=== PATIENT | male | born 1945 | race Caucasian/White ===

== ENCOUNTER 2018-04-26 06:50 | Inpatient (IN) ==
--- NOTE | 2018-04-05 12:16 | Anesthesiology Consultation ---
Date of Service April 05, 2018 Assessment & Plan (1) Encounter for pre-operative examination: Chart Review Chart Review: Acceptable Risk for Surgery and Patient seen in Pre Admission Testing Consults Requested medical (Dr. Merchant (04/07)) Saw PCP who stated that patient is "clear medically for low back surgery thursday04/26/18". Teaching & Discussion Pre-Anesthesia Teaching/Discussion Notes: Instructed NPO after midnight before surgery, except medications with 15 cc of water. Medication instructions provided according to the PAT guidelines. History Surgery Operation Date: 04/26/18 09:05 Proposed Procedures p L4-L5 Decompression and Fusion - Rehan Mccray DO Height/Weight Height: 5 ft 10 in Weight: 82.2 kg Allergies Allergy/AdvReac Type Severity Reaction Status Date / Time No Known Allergies Allergy Verified 03/30/18 09:50 Medications Home Medications Medication Instructions Recorded Confirmed Last Taken acetaminophen [Tylenol] 325 mg PO Q6H PRN 03/30/18 03/30/18 Unknown atorvastatin [Lipitor] 10 mg PO PM 03/30/18 03/30/18 Unknown empagliflozin-linagliptin 1 tab PO QAM 03/30/18 03/30/18 Unknown [Glyxambi] glipizide 5 mg PO QAM 03/30/18 03/30/18 Unknown losartan-hydrochlorothiazide 1 tab PO Q OTHER DAY 03/30/18 03/30/18 Unknown [Hyzaar] metformin 1,000 mg PO BID 03/30/18 03/30/18 Unknown Past Medical History Medical History BPH (benign prostatic hyperplasia) Diabetes mellitus, type 2 NIDDM Diverticular disease Hearing deficit BL GOMEZ Hyperlipidemia Hypertension Lyme disease TREATED Osteoarthritis Spinal stenosis Past Surgical History Surgical History History of bowel resection July 2017 History of cataract surgery History of colonoscopy History of esophagogastroduodenoscopy (EGD) Past Anesthesia History No Hx of Anesthesia Complications and No Family Hx of Anesthesia Complications History of PONV No Motion Sickness Screening History of Motion Sickness: No Social History Smoking Status: Never smoker Do You Dip or Chew Tobacco: No (Quit in 1983) Hx Alcohol Use: Yes Alcohol type: beer alcohol intake frequency: a few times a week Hx Substance Use: No substance use type: does not use Exercise / Class Metabolic Activity II 4-5 Yardwork/Stairs/Walk up hill (Able to climb FOS. Chops wood. Hunts. Denies CP or SOB. ) Review of Systems Patient denies chest pain, shortness of breath, dyspnea on exertion, reflux, cough, wheezing, palpitations. +joint pain (back, hands) Physical Exam Vital Signs BP: 150/80 P: 64 R: 16 T: 97.9 SPO2: 96 % on RA ENMT Mouth: + dentures (uppers) Thyromental Distance: > or= 3.5 Finger Breadths (4) Mallampati Class: III Neck normal visual inspection and trachea midline; neck extension not limited Respiratory normal respiratory effort Auscultation: lungs clear to auscultation bilaterally Cardiovascular Rate/Rhythm: regular rate and regular rhythm Heart Sounds: no murmur Vessels: no carotid bruit Psychiatric Orientation: alert and oriented x 3 Testing Electrocardiogram Date: 04/05/18 Findings: + SB @ (59) 1st degree A-V block. Chest X-Ray Date: 04/05/18 Findings: + NAD FINDINGS: Lung volumes are normal. There is no pneumothorax or pleural effusion. There are multiple calcified pleural plaques. Cardiac size is normal. Mediastinal contours are normal. No evidence for pulmonary edema. IMPRESSION: 1. No acute cardiopulmonary findings. 2. Multiple calcified pleural plaques. Laboratory Results 04/05/18 13:16 04/05/18 13:16 Blood Type A Positive 04/05/18 13:16 Antibody Screen NEGATIVE 04/05/18 13:16 PT 10.7 Seconds (9.0-12.0) 04/05/18 13:16 INR 1.0 (0.9-1.1) 04/05/18 13:16 APTT 26.1 Seconds (21.0-31.0) 04/05/18 13:16 Urine Color Yellow 04/05/18 Unknown Urine Appearance Clear (Clear) 04/05/18 Unknown Urine pH 5.0 (4.5-7.5) 04/05/18 Unknown Ur Specific [place] 1.019 (1.000-1.030) 04/05/18 Unknown Urine Protein Negative (Negative) 04/05/18 Unknown Urine Glucose (UA) 3+ (Negative) H 04/05/18 Unknown Urine Ketones Negative (Negative) 04/05/18 Unknown Urine Nitrite Negative (Negative) 04/05/18 Unknown Ur Leukocyte Esterase Negative (Negative) 04/05/18 Unknown Urine WBC (Auto) 0 /hpf (0-5) 04/05/18 Unknown Urine RBC (Auto) 0-4 /hpf (0-4) 04/05/18 Unknown U Hyaline Cast (Auto) 0 /lpf (0-5) 04/05/18 Unknown U Epithel Cells (Auto) 0-5 /lpf (0-5) 04/05/18 Unknown Urine Bacteria (Auto) Negative (Negative) 04/05/18 Unknown
--- NOTE | 2018-04-05 12:18 | PAT Medication Instructions ---
Medication Instructions Date of Service April 05, 2018 Home Medications acetaminophen [Tylenol] 325 mg PO Q6H NEEDED atorvastatin [Lipitor] 10 mg PO PM empagliflozin-linagliptin [Glyxambi] 1 tab PO QAM glipizide 5 mg PO QAM losartan-hydrochlorothiazide [Hyzaar] 1 tab PO Q OTHER DAY metformin 1,000 mg PO BID DO NOT take the morning of surgery empagliflozin-linagliptin [Glyxambi] 1 tab PO QAM glipizide 5 mg PO QAM losartan-hydrochlorothiazide [Hyzaar] 1 tab PO Q OTHER DAY metformin 1,000 mg PO BID Take morning of surgery With a small sip of water, OTHERWISE NOTHING TO EAT OR DRINK AFTER MIDNIGHT: acetaminophen [Tylenol] 325 mg PO Q6H NEEDED Take evening before surgery metformin 1,000 mg PO BID acetaminophen [Tylenol] 325 mg PO Q6H NEEDED atorvastatin [Lipitor] 10 mg PO PM Other Notes If you have any questions please call us at [phone] or [phone] or [phone] or [phone]
--- NOTE | 2018-04-05 13:51 | XRay Report ---
XR chest Pre-admission PA/Lat CLINICAL HISTORY: Preoperative evaluation. COMPARISON STUDY: No previous studies for comparison. FINDINGS: Lung volumes are normal. There is no pneumothorax or pleural effusion. There are multiple c alcified pleural plaques. Cardiac size is normal. Mediastinal contours are normal. No evidence for pu lmonary edema. IMPRESSION: 1. No acute cardiopulmonary findings. 2. Multiple calcified pleural plaques. Electronically signed by: Joseph Maharaj M.D. 04/05/2018 1:50 PM
[2018-04-05 15:47] LABS: Basophils # (auto) 0.03 K/uL (0-0.2); Basophils % (auto) 0.5 %; Eosinophils # (auto) 0.05 K/uL (0-0.5); Eosinophils % (auto) 0.8 %; Hematocrit (blood only) 46.4 % (42-52); Hemoglobin 15.9 g/dL (14.0-18.0); Immature Granulocytes # (auto) 0.02 K/uL (0.00-0.02); Immature Granulocytes % (auto) 0.3 %; Lymphocytes # (auto) 1.51 K/uL (1.2-3.4); Lymphocytes % (auto) 23.3 %; Mean Corpuscular Hgb Conc 34.3 g/dL (32-36); Mean Corpuscular Volume 94.3 fL (80-100); Mean Platelet Volume 9.4 fL (7.4-10.4); Monocytes # (auto) 0.71 K/uL (0.11-0.59); Neutrophils # (auto) 4.15 K/uL (1.4-6.5); Neutrophils % (auto) 64.1 %; Platelet Count 216 K/uL (130-400); RDW Coefficient of Variation 12.8 % (11.5-14.5); RDW Standard Deviation 44.1 fL (36.4-46.3); Red Blood Count 4.92 M/uL (4.7-6.1); White Blood Count 6.47 K/uL (4.8-10.8)
[2018-04-05 15:51] LABS: Appearance Urine Clear (Clear); Bacteria Urine Automated Negative (Negative); Bilirubin Urine Negative (Negative); Blood Urine Trace (Negative); Cast Urine Automated 0 /lpf (0-5); Color Urine Yellow; Epithelial Cell Urine Auto 0-5 /lpf (0-5); Glucose Urine UA 3+ (Negative); Ketones Urine Negative (Negative); Leukocyte Esterase Urine Negative (Negative); Nitrite Urine Negative (Negative); Protein Urine Negative (Negative); RBC Urine Automated 0-4 /hpf (0-4); Specific Gravity Urine 1.019 (1.000-1.030); Urobilinogen Urine Negative (Negative); WBC Urine Automated 0 /hpf (0-5)
[2018-04-05 15:53] LABS: BUN Creatinine Ratio 22.1 (10-20); Calcium 9.4 mg/dl (8.5-10.1); Creatinine Clr Calc Pharmacy 74.7 ml/min; Est GFR (African American) 93.6; Est GFR (Non-African American) 80.8; Potassium 4.5 mmol/L (3.5-5.1)
[2018-04-05 15:54] LABS: Partial Thromboplastin Time 26.1 Seconds (21.0-31.0); Prothrombin Time 10.7 Seconds (9.0-12.0)
[~2018-04-26 06:50] MED LIST: ACETAMINOPHEN 500 MG TAB PO SCH; CEFAZOLIN 2000MG 2,000 MG/15 ML SYR IV SCH; CeleBREX 200 MG CAP PO SCH; GABAPENTIN 300 MG PO SCH; HYDROmorphone INJ 2 MG/ML SYR/VIAL ONE; LR 15ML/HR IV SCH; MIDAZOLAM HCL 1 MG/ML 2ML VIAL ONE; fentaNYL citrate 100 MCG/2 ML VIAL ONE
[2018-04-26] MEDS ORDERED: fentaNYL citrate 100 MCG/2 ML VIAL ONE ×4 (08:15→11:29)
[2018-04-26] MEDS ORDERED: HYDROmorphone INJ 2 MG/ML SYR/VIAL ONE ×2 (08:16→11:02)
[2018-04-26] MEDS ORDERED: GLYCOPYRROLATE 0.2 MG/ML VIAL ONE (08:18)
[2018-04-26] MEDS ORDERED: DEXAMETHASONE SOD INJ 4 MG/ML VIAL ONE (08:18)
[2018-04-26] MEDS ORDERED: PROPOFOL IV EMULSION 10 MG/ML 20 ML VIAL IV ONE (08:18)
[2018-04-26] MEDS ORDERED: LIDOCAINE HCL 2% 2 ML VIAL/AMP(20MG/ML) INFIL ONE (08:18)
[2018-04-26] MEDS ORDERED: ONDANSETRON INJ 2 MG/ML 2 ML VIAL ONE (08:18)
[2018-04-26] MEDS ORDERED: ROCURONIUM BROMIDE 10 MG/ML 5 ML VIAL ONE (08:18)
[2018-04-26] MEDS ORDERED: NEOSTIGMINE METHYLSULFATE 1 MG/ML 10ML VIAL ONE (08:18)
[2018-04-26] MEDS ORDERED: fentaNYL citrate 100 MCG/2 ML VIAL IV PRN (09:06)
[2018-04-26] MEDS ORDERED: HYDROmorphone INJ 2 MG/ML SYR/VIAL IV PRN (09:06)
[2018-04-26] MEDS ORDERED: ONDANSETRON INJ 2 MG/ML 2 ML VIAL IV PRN ×2 (09:06→13:08)
[2018-04-26] MEDS ORDERED: ePHEDrine sulfate 50 MG/ML AMP IV PRN (09:06)
[2018-04-26] MEDS ORDERED: ATROPINE SULFATE 0.1 MG/ML 5ML SYR IV PRN (09:06)
--- NOTE | 2018-04-26 09:19 | History & Physical Bridge Note ---
Date of Service April 26, 2018 History & Physical Bridge Note I have examined the patient, reviewed the History & Physical and in the interval since the performance of the History & Physical I have noted the following changes of clinical significance: no changes noted
--- NOTE | 2018-04-26 09:21 | History & Physical Report ---
Date of Service April 26, 2018 Assessment & Plan (1) Neurogenic claudication due to lumbar spinal stenosis: Decompression fusion L4-5 Present on Admission?: Yes History of Present Illness Chief Complaint: Back and leg pain Primary Care Provider: Gato Navas This is a 73-year-old male who presents with chronic persistent back and leg pain is failed extensive course of nonoperative care and is here for surgical intervention. Allergies Allergy/AdvReac Type Severity Reaction Status Date / Time No Known Allergies Allergy Verified 03/30/18 09:50 Home Medications Home Medications Medication Instructions Recorded Confirmed Type acetaminophen [Tylenol] 325 mg PO Q6H PRN 03/30/18 04/26/18 History atorvastatin [Lipitor] 10 mg PO PM 03/30/18 04/26/18 History empagliflozin-linagliptin 1 tab PO QAM 03/30/18 04/26/18 History [Glyxambi] glipizide 5 mg PO QAM 03/30/18 04/26/18 History losartan-hydrochlorothiazide 1 tab PO Q OTHER DAY 03/30/18 04/26/18 History [Hyzaar] metformin 1,000 mg PO BID 03/30/18 04/26/18 History Past Med/Surg History Social History Current Living Situation: Spouse Other Information That Helps Us Care for You: No Feels Safe at Home: Yes Safety Concerns: Feels Safe At This Time Smoking Status: Never smoker Do You Dip or Chew Tobacco: No (Quit in 1983) Hx Alcohol Use: Yes Alcohol type: beer Alcohol Intake Frequency: a few times a week Hx Substance Use: No Beliefs That Will Affect Care: None Preferred Language: Welsh Communication Ability: Effective Pediatric Anesthesiologist Required: No Physical Exam 2 Vital Signs (Past 24 Hours): Last Vital Signs Temp 37.1 C 04/26/18 07:47 Pulse 70 04/26/18 07:47 Resp 18 04/26/18 07:47 BP 167/83 H 04/26/18 07:47 Pulse Ox 95 04/26/18 07:47 Results & Data Medications Administered Acetaminophen (Tylenol) 1,000 mg PO PREOP DIEUDONNE Stop: 04/26/18 18:00 Last Admin: 04/26/18 08:14 Dose: 1,000 mg Celecoxib (Celebrex) 200 mg PO PREOP DIEUDONNE Stop: 04/26/18 18:00 Last Admin: 04/26/18 08:15 Dose: 200 mg Gabapentin (Neurontin) 300 mg PO PREOP DIEUDONNE Stop: 04/26/18 18:00 Last Admin: 04/26/18 08:15 Dose: 300 mg Lactated Ringer's (Lr) 1,000 mls @ 15 mls/hr IV .Q24H DIEUDONNE Stop: 04/27/18 05:59 Last Admin: 04/26/18 08:03 Dose: 15 mls/hr
[2018-04-26] MEDS ORDERED: BACITRACIN INJ 50,000 UNIT VIAL ONE (09:46)
[2018-04-26] MEDS ORDERED: BUPIVACAINE/EPINEPHRINE 0.5% MPF 1:200,000 30 ML VIAL ONE (09:46)
[2018-04-26] MEDS ORDERED: LARYING-O-JET KIT (LTA) ONE (10:35)
[2018-04-26] MEDS ORDERED: ePHEDrine sulfate 50 MG/ML SYR ONE (11:23)
[2018-04-26] MEDS ORDERED: PHENYLEPHRINE 100MCG/ML 5ML SYR ONE (11:23)
[2018-04-26] MEDS ORDERED: KETOROLAC 30 MG/ML VIAL ONE (11:32)
--- NOTE | 2018-04-26 11:48 | Operative Report ---
Post Operative Report Date of Surgery April 26, 2018 Pre & Post Diagnosis Operation Date: 04/26/18 09:05 Pre-Op Diagnosis: Lumbar spinal stenosis with spondylolisthesis and neurogenic claudication Post-Op Diagnosis: Same Procedure Operation Date: 04/26/18 09:05 Actual Procedures #1 lumbar decompression medial vasectomy foraminotomy L3-4 L4-5. #2 posterior spinal fusion L4-5. #3 placement posterior interpretation L4-5. #4 interbody fusion L4-5 per #5 placement of titanium 11 x 26 mm cage at L5 4 5. #5 placement of local autograft and posterior gutters. #6 placement Feese: Sponge , master of the posterior gutters and ostial amp and interbody space. Surgeon Rehan Mccray, Senior Principal Architect None Estimated Blood Loss 225 Findings Consistent with Post-Op Diagnosis Specimens None Description of Procedure Patient was met with preoperatively case discussed all questions addressed with him and patient was taken to the operative suite underwent intubation and placed in a prone position on the Frantz table on top of the Carlyle frame. All bony prominences well-padded eyes inspected to ensure no external pressure placed upon the peer at this point lumbar spine was prepped and draped in normal sterile fashion. Sharp dissection with the assistance of Bovie cautery was performed down to and exposing the lamina and transverse process of L4 and 5 bilaterally. From a caudal cephalad fashion complete laminectomy of L4 partial laminectomy of L3 was performed including medial facetectomies and foraminotomies addressing severe stenosis. Pedicle screws were then placed in L4 and L5 bilaterally with assistance of fluoroscopy process gloria placement through a transforaminal approach and left the discectomy was performed in plate coated to subcortical bleeding bone and an 11 x 26 mm titanium cage filled with ostium bone graft tapped into position. Rods were then compressed locked in final position bilaterally. The transverse processes of L4 and fiber to subcortical bleeding bone. Infuse collagen sponge mass graft local autograft placed in the posterior gutters. 15 round SABINE drain inserted. Incision was then closed with 1 Vicryl fascia 2-0 Vicryl subcutaneous and 4 Monocryl for final skin closure Steri-Strip sterile dressings placed. Patient will continue to PACU stable condition. I attest to the content of the Intraoperative Record and any orders documented therein. Any exceptions are noted below.
--- NOTE | 2018-04-26 12:13 | Fluoroscopy Report ---
FL lumbar spine 2-3V CLINICAL HISTORY: L4-5 DECOMPRESSION/FUSION COMPARISON STUDY: None. FLUOROSCOPY TIME: 15.7 seconds. FLUOROSCOPIC IMAGES: 2 FINDINGS: These images demonstrate an L4-L5 discectomy with interbody spacer placement. There is a po sterior decompression with bilateral pedicle screws at the L4 and L5 levels. Hardware is intact. IMPRESSION: Fluoroscopic images demonstrating an L4-L5 discectomy and bilateral pedicle fusion. Electronically signed by: Joseph Maharaj M.D. 04/26/2018 12:12 PM
--- NOTE | 2018-04-26 12:33 | Anesthesiology Progress Note ---
Date of Service April 26, 2018 Anesthesia Post Procedure Vital Signs Vital Signs: Temp Pulse Pulse Resp BP BP Pulse Ox 04/26/18 12:20 80 15 158/82 H 100 04/26/18 12:10 79 12 154/83 H 100 04/26/18 12:00 72 13 151/80 H 100 04/26/18 11:50 36.4 C L 79 12 149/79 H 100 04/26/18 07:47 37.1 C 70 18 167/83 H 95 Pain Intensity Back: Pain Intensity: 0 Notes Mental Status: alert / awake / arousable Patient Amnestic to Procedure: Yes Nausea / Vomiting: adequately controlled Pain: adequately controlled Airway Patency, RR, SpO2: stable & adequate BP & HR: stable & adequate Hydration State: stable & adequate Anesthetic Complications: no major complications apparent
[2018-04-26] MEDS ORDERED: DO NOT ADMINISTER FLU VACCINE PRN (13:08)
[2018-04-26] MEDS ORDERED: HYDROmorphone INJ 0.5 MG/0.5 ML SYR IV PRN (13:08)
[2018-04-26] MEDS ORDERED: TRAMADOL HCL 50 MG TABLET PO PRN (13:08)
[2018-04-26] MEDS ORDERED: OXYCODONE HCL IR 5 MG TAB (IMMEDIATE RELEASE) PO PRN (13:08)
[2018-04-26] MEDS ORDERED: MAGNESIUM HYDROXIDE SUSP 30 ML UDC PO PRN (13:08)
[2018-04-26] MEDS ORDERED: LORazepam 0.5 MG/1 ML VIAL IV PRN (13:08)
[2018-04-26] MEDS ORDERED: ALUMINUM/MAGNESIUM SUSP 30 ML UDC PO PRN (13:08)
[2018-04-26] MEDS ORDERED: BISACODYL 10 MG SUPP PR PRN (13:08)
[2018-04-26] MEDS ORDERED: LORazepam 0.5 MG TAB PO PRN (13:08)
[2018-04-26] MEDS ORDERED: DO NOT ADMINISTER PNEUMOCOCCAL VACCINE PRN (13:08)
[2018-04-26] MEDS ORDERED: FAMOTIDINE 20 MG TAB PO PRN (13:08)
[2018-04-26] MEDS ORDERED: ACETAMINOPHEN 325 MG TAB PO PRN (13:08)
[2018-04-26] MEDS ORDERED: METOCLOPRAMIDE HCL INJ 5 MG/ML 2 ML VIAL IV PRN (13:08)
[2018-04-26] MEDS ORDERED: PROMETHAZINE HCL 12.5 MG in SODIUM CHLORIDE 0.9% 50 ML IV PRN (13:08)
[2018-04-26] MEDS ORDERED: ONDANSETRON 4 MG TAB PO PRN (13:08)
[2018-04-26] MEDS ORDERED: SOD PHOSPHATE/SOD BIPHOSPHATE ENEMA 132 ML BTL PR PRN (13:08)
[2018-04-26] MEDS ORDERED: ACETAMINOPHEN 1,000 MG/100 ML VIAL IV PRN (13:08)
[2018-04-26] MEDS ORDERED: HYDROmorphone INJ 1 MG/ML SYRINGE IV PRN (13:53)
[2018-04-26] MEDS: SODIUM CHLORIDE 0.9% 1000ML 1,000 ML IV SCH ×2 (14:06→20:54)
[2018-04-26] MEDS ORDERED: CARBOHYDRATES FOR HYPOGLYCEMIA PO PRN (17:29)
[2018-04-26] MEDS ORDERED: GLUCOSE 10 TABS/TUBE PO PRN (17:29)
[2018-04-26] MEDS ORDERED: DEXTROSE 50% 50 ML SYRINGE IV PRN (17:29)
[2018-04-26] MEDS ORDERED: GLUCAGON FOR INJ 1 MG VIAL IM PRN (17:29)
[2018-04-26] MEDS ORDERED: GLUCOSE 40% GEL 15 GM TUBE PO PRN (17:29)
[2018-04-26] MEDS: CEFAZOLIN 2000MG 2,000 MG/15 ML SYR IV SCH (17:54)
[2018-04-26] MEDS: KETOROLAC TROMETHAMINE 15 MG/ML VIAL IV SCH (18:03)
[2018-04-26] MEDS ORDERED: INSULIN ASPART 100 UNITS/ML 3 ML PEN SC SCH (18:30)
[2018-04-26] MEDS: ATORVASTATIN 10 MG TAB PO SCH (22:18)
[2018-04-26] MEDS: DOCUSATE SODIUM/SENNA 50/8.6MG TAB PO SCH (22:19)
--- NOTE | 2018-04-26 22:24 | Internal Medicine Consult Note ---
Date of Consultation April 26, 2018 Assessment & Plan (1) Status post lumbar spine surgery for decompression of spinal cord: Doing well postop. (2) Diabetes mellitus type 2, controlled: Hold oral agents during hospital stay. Lantus / NovoLog per protocol. (3) Essential hypertension: Hold HCTZ for at least a day or 2. Continue losartan with hold parameters. (4) DVT prophylaxis: Per Ortho protocol. (5) Encounter for consultation: Thank you for this consultation. We will follow the patient with you during their hospital stay. My cell # is [phone]. You can reach a member of the [facility] Medicine Team 17/11 via pager @ [phone]. History of Present Illness Attending Physician: Rehan Mccray DO History of Present Illness 73 YO male from [place]. History of hypertension, DM, and other problems. Lumbar decompression / fusion performed today by Dr. Mccray. Doing well postoperatively. No chest pain, cough, SOB, nausea, vomiting. Pain well-controlled. Allergies Allergy/AdvReac Type Severity Reaction Status Date / Time No Known Allergies Allergy Verified 03/30/18 09:50 Home Medications Home Medications Medication Instructions Recorded Confirmed Type acetaminophen [Tylenol] 325 mg PO Q6H PRN 03/30/18 04/26/18 History atorvastatin [Lipitor] 10 mg PO PM 03/30/18 04/26/18 History empagliflozin-linagliptin 1 tab PO QAM 03/30/18 04/26/18 History [Glyxambi] glipizide 5 mg PO QAM 03/30/18 04/26/18 History losartan-hydrochlorothiazide 1 tab PO Q OTHER DAY 03/30/18 04/26/18 History [Hyzaar] metformin 1,000 mg PO BID 03/30/18 04/26/18 History Patient History Family History Brother Diabetes mellitus Sister Diabetes mellitus Brother Marfan's syndrome Social History Current Living Situation: Spouse Other Information That Helps Us Care for You: No Feels Safe at Home: Yes Safety Concerns: Feels Safe At This Time Smoking Status: Never smoker Do You Dip or Chew Tobacco: No (Quit in 1983) Hx Alcohol Use: Yes Alcohol type: beer Alcohol Intake Frequency: a few times a week Hx Substance Use: No Beliefs That Will Affect Care: None Preferred Language: Kazakh Communication Ability: Effective Sizing Sprayer Required: No Review of Systems Constitutional: no fever and no weight loss Respiratory: no cough and no dyspnea Cardiovascular: no chest pain Gastrointestinal: no nausea, no vomiting and no blood in stools Genitourinary (Male): no dysuria and no hematuria Musculoskeletal: + joint pain (low back) Physical Exam 2 Vital Signs (Past 24 Hours): Last Vital Signs Temp 37.1 C 04/26/18 16:01 Pulse 86 04/26/18 16:01 Resp 16 04/26/18 16:01 BP 151/76 H 04/26/18 16:01 Pulse Ox 92 04/26/18 16:01 Constitutional: WD/WN, vitals as above no acute distress Eyes: PERRL, conjunctivae normal, anicteric sclerae ENMT: external ear and nose normal, oropharynx normal Mouth: + dentures ( upper) Neck: trachea midline, no thyromegaly Respiratory: normal respiratory effort, lungs clear to auscultation Cardiovascular: Rate/Rhythm: regular rate Heart Sounds: no gallop, no murmur and no cardiac rub Vessels: no JVD Extremities: no calf tenderness and no edema Gastrointestinal (Abdomen): normal bowel sounds, soft, nontender, no hepatosplenomegaly Musculoskeletal: Head/Neck/Chest: neck supple Extremities: extremities normal to inspection (TEDS applied) and strength 5/5 throughout; no cyanosis and no clubbing Skin: no rashes, warm and dry Neurologic: PERRL, EOMI no facial palsy no dysarthria or aphasia patellar DTR's 2/2 bilat Psychiatric: Orientation: alert and oriented x 3 Affect: euthymic affect Lymphatic: no cervical lymphadenopathy Results & Data Laboratory Results 04/05/18 04/05/18 04/05/18 13:16 13:16 13:16 WBC 6.47 RBC 4.92 Hgb 15.9 Hct 46.4 MCV 94.3 MCH 32.3 MCHC 34.3 RDW Std Deviation 44.1 RDW Coeff of Artie 12.8 Plt Count 216 MPV 9.4 Immature Gran % (Auto) 0.3 Neut % (Auto) 64.1 Lymph % (Auto) 23.3 [place] % (Auto) 11.0 Eos % (Auto) 0.8 Baso % (Auto) 0.5 Immature Gran # (Auto) 0.02 Neut # (Auto) 4.15 Lymph # (Auto) 1.51 [place] # (Auto) 0.71 H Eos # (Auto) 0.05 Baso # (Auto) 0.03 PT 10.7 INR 1.0 APTT 26.1 PTT Ratio 1.0 Sodium 139 Potassium 4.5 Chloride 104 Carbon Dioxide 28 Anion Gap 7.0 BUN 21 H Creatinine 0.95 Est Cr Clr Drug Dosing 74.7 Est GFR ( Amer) 93.6 Est GFR (Non-Af Amer) 80.8 BUN/Creatinine Ratio 22.1 H Glucose 80 POC Glucose Calcium 9.4 Urine Color Urine Appearance Urine pH Ur Specific [place] Urine Protein Urine Glucose (UA) Urine Ketones Urine Blood Urine Nitrite Urine Bilirubin Urine Urobilinogen Ur Leukocyte Esterase Urine WBC (Auto) Urine RBC (Auto) U Hyaline Cast (Auto) U Epithel Cells (Auto) Urine Bacteria (Auto) Blood Type Antibody Screen 04/05/18 04/05/18 04/26/18 13:16 Unknown 07:44 WBC RBC Hgb Hct MCV MCH MCHC RDW Std Deviation RDW Coeff of Artie Plt Count MPV Immature Gran % (Auto) Neut % (Auto) Lymph % (Auto) [place] % (Auto) Eos % (Auto) Baso % (Auto) Immature Gran # (Auto) Neut # (Auto) Lymph # (Auto) [place] # (Auto) Eos # (Auto) Baso # (Auto) PT INR APTT PTT Ratio Sodium Potassium Chloride Carbon Dioxide Anion Gap BUN Creatinine Est Cr Clr Drug Dosing Est GFR ( Amer) Est GFR (Non-Af Amer) BUN/Creatinine Ratio Glucose POC Glucose 166 H Calcium Urine Color Yellow Urine Appearance Clear Urine pH 5.0 Ur Specific [place] 1.019 Urine Protein Negative Urine Glucose (UA) 3+ H Urine Ketones Negative Urine Blood Trace H Urine Nitrite Negative Urine Bilirubin Negative Urine Urobilinogen Negative Ur Leukocyte Esterase Negative Urine WBC (Auto) 0 Urine RBC (Auto) 0-4 U Hyaline Cast (Auto) 0 U Epithel Cells (Auto) 0-5 Urine Bacteria (Auto) Negative Blood Type A Positive Antibody Screen NEGATIVE 04/26/18 04/26/18 11:52 17:09 WBC RBC Hgb Hct MCV MCH MCHC RDW Std Deviation RDW Coeff of Artie Plt Count MPV Immature Gran % (Auto) Neut % (Auto) Lymph % (Auto) [place] % (Auto) Eos % (Auto) Baso % (Auto) Immature Gran # (Auto) Neut # (Auto) Lymph # (Auto) [place] # (Auto) Eos # (Auto) Baso # (Auto) PT INR APTT PTT Ratio Sodium Potassium Chloride Carbon Dioxide Anion Gap BUN Creatinine Est Cr Clr Drug Dosing Est GFR ( Amer) Est GFR (Non-Af Amer) BUN/Creatinine Ratio Glucose POC Glucose 142 H 220 H Calcium Urine Color Urine Appearance Urine pH Ur Specific [place] Urine Protein Urine Glucose (UA) Urine Ketones Urine Blood Urine Nitrite Urine Bilirubin Urine Urobilinogen Ur Leukocyte Esterase Urine WBC (Auto) Urine RBC (Auto) U Hyaline Cast (Auto) U Epithel Cells (Auto) Urine Bacteria (Auto) Blood Type Antibody Screen Diagnostic Findings CXR 04/05/18 showed calcified pleural plaques, no acute findings. ECG Additional Comments: EKG performed 04/05/18 reviewed. SB 59/mauricio, no acute findings.
[2018-04-26] MEDS: INSULIN GLARGINE SOLOSTAR 100 UNITS/ML 3 ML PEN SC SCH (22:37)
[2018-04-26] MEDS: INSULIN ASPART 100 UNITS/ML 3 ML PEN SC SCH (22:37)
[2018-04-27] MEDS: KETOROLAC TROMETHAMINE 15 MG/ML VIAL IV SCH ×3 (00:48→12:24)
[2018-04-27] MEDS: CEFAZOLIN 2000MG 2,000 MG/15 ML SYR IV SCH (00:53)
[2018-04-27] MEDS: SODIUM CHLORIDE 0.9% 1000ML 1,000 ML IV SCH (03:28)
[2018-04-27] MEDS: POLYETHYLENE (MIRALAX) 17 GM PACK PO SCH ×4 (06:26→23:41)
[2018-04-27 07:57] LABS: BUN Creatinine Ratio 24.4 (10-20); Creatinine Clr Calc Pharmacy 62.5 ml/min; Est GFR (African American) 76.2; Est GFR (Non-African American) 65.7; Potassium 4.3 mmol/L (3.5-5.1)
[2018-04-27 08:04] LABS: Basophils # (auto) 0.01 K/uL (0-0.2); Basophils % (auto) 0.1 %; Hemoglobin 13.2 g/dL (14.0-18.0); Immature Granulocytes # (auto) 0.02 K/uL (0.00-0.02); Immature Granulocytes % (auto) 0.2 %; Lymphocytes # (auto) 0.91 K/uL (1.2-3.4); Lymphocytes % (auto) 9.3 %; Mean Corpuscular Hgb Conc 33.8 g/dL (32-36); Mean Corpuscular Volume 93.1 fL (80-100); Mean Platelet Volume 9.3 fL (7.4-10.4); Monocytes # (auto) 0.92 K/uL (0.11-0.59); Monocytes % (auto) 9.4 %; Neutrophils # (auto) 7.96 K/uL (1.4-6.5); Platelet Count 170 K/uL (130-400); RDW Coefficient of Variation 12.7 % (11.5-14.5); RDW Standard Deviation 42.9 fL (36.4-46.3); Red Blood Count 4.19 M/uL (4.7-6.1); White Blood Count 9.82 K/uL (4.8-10.8)
[2018-04-27] MEDS: INSULIN GLARGINE SOLOSTAR 100 UNITS/ML 3 ML PEN SC SCH ×2 (08:26→21:23)
[2018-04-27] MEDS: INSULIN ASPART 100 UNITS/ML 3 ML PEN SC SCH ×4 (08:29→21:01)
[2018-04-27] MEDS ORDERED: LOSARTAN/HCTZ 50/12.5MG TAB PO SCH (09:00)
[2018-04-27] MEDS ORDERED: EMPAGLIFLOZIN LINAGLIPTIN PO SCH (09:00)
[2018-04-27] MEDS ORDERED: glipiZIDE 5 MG TAB PO SCH (09:00)
[2018-04-27] MEDS: LOSARTAN POTASSIUM 50 MG TAB PO SCH (10:16)
--- NOTE | 2018-04-27 11:57 | Orthopedic Progress Note ---
Date of Service April 27, 2018 Assessment & Plan (1) Neurogenic claudication due to lumbar spinal stenosis: At this time we will continue physical therapy monitor his SABINE output anticipate discharge home Thursday or . Present on Admission?: Yes Subjective Back pain is controlled leg symptoms markedly improved. Physical Exam 2 Vital Signs (Past 24 Hours): Last Vital Signs Temp 36.8 C 04/27/18 10:54 Pulse 68 04/27/18 10:54 Resp 18 04/27/18 10:54 BP 161/78 H 04/27/18 10:54 Pulse Ox 97 04/27/18 10:54 Physical Exam: Patient is quite comfortable has good strength testing.
--- NOTE | 2018-04-27 14:50 | Hospitalist Progress Note ---
Date of Service April 27, 2018 Assessment & Plan (1) Status post lumbar spine surgery for decompression of spinal cord: POD # 1. Doing well postop. (2) Diabetes mellitus type 2, controlled: Hold oral agents during hospital stay. FBS today = 201. Lantus / NovoLog per protocol. (3) Essential hypertension: Hold HCTZ for at least a day or 2. Continue losartan with hold parameters. (4) DVT prophylaxis: Per Ortho protocol. (5) Encounter for consultation: Thank you for this consultation. We will follow the patient with you during their hospital stay. My cell # is [phone]. You can reach a member of the [facility] Medicine Team 17/11 via pager @ [phone]. I will be covering until 1900 04/27/18. Dr. Iniguez will be assuming medical management 04/28/18. Subjective Recheck for hypertension, DM, and other problems. Pt seen in his room around 0750. Doing well postoperatively. No chest pain, cough, SOB, nausea, vomiting. Pain well-controlled. Physical Exam 2 Vital Signs (Past 24 Hours): Last Vital Signs Temp 36.8 C 04/27/18 10:54 Pulse 68 04/27/18 10:54 Resp 18 04/27/18 10:54 BP 161/78 H 04/27/18 10:54 Pulse Ox 97 04/27/18 10:54 Constitutional: WD/WN, vitals as above no acute distress Respiratory: normal respiratory effort, lungs clear to auscultation Cardiovascular: Rate/Rhythm: regular rate Heart Sounds: no gallop, no murmur and no cardiac rub Vessels: no JVD Extremities: no calf tenderness and no edema Gastrointestinal (Abdomen): normal bowel sounds, soft, nontender, no hepatosplenomegaly Musculoskeletal: Extremities: extremities normal to inspection (TEDS applied) ; no cyanosis Results & Data Laboratory Results Short CBC 04/27/18 Range/Units 06:44 WBC 9.82 (4.8-10.8) K/uL Hgb 13.2 L (14.0-18.0) g/dL Hct 39.0 L (42-52) % Plt Count 170 (130-400) K/uL BMP 04/27/18 06:44 Sodium 136 Potassium 4.3 Chloride 104 Carbon Dioxide 24 BUN 27 H Creatinine 1.12 Glucose 214 H Calcium 8.0 L
[2018-04-27] MEDS: DOCUSATE SODIUM/SENNA 50/8.6MG TAB PO SCH (20:58)
[2018-04-27] MEDS: ATORVASTATIN 10 MG TAB PO SCH (20:58)
[2018-04-27] MEDS: ACETAMINOPHEN 500 MG TAB PO PRN (23:54)
[2018-04-28] MEDS: POLYETHYLENE (MIRALAX) 17 GM PACK PO SCH ×4 (05:17→23:51)
[2018-04-28] MEDS: LOSARTAN POTASSIUM 50 MG TAB PO SCH (07:44)
[2018-04-28] MEDS: INSULIN GLARGINE SOLOSTAR 100 UNITS/ML 3 ML PEN SC SCH ×2 (07:47→20:42)
[2018-04-28] MEDS: INSULIN ASPART 100 UNITS/ML 3 ML PEN SC SCH ×4 (07:49→20:39)
--- NOTE | 2018-04-28 08:19 | Anesthesiology Progress Note ---
Date of Service April 28, 2018 Anesthesia Post Procedure Vital Signs Vital Signs: Temp Pulse Resp BP Pulse Ox 04/28/18 06:45 36.7 C 64 16 129/79 96 04/27/18 23:02 36.9 C 65 18 131/74 97 04/27/18 15:03 36.7 C 63 18 136/72 96 04/27/18 10:54 36.8 C 68 18 161/78 H 97 04/27/18 10:15 65 144/81 H Pain Intensity Back: Pain Intensity: 5 Notes Mental Status: alert / awake / arousable and participated in evaluation Patient Amnestic to Procedure: Yes Nausea / Vomiting: adequately controlled Pain: adequately controlled Airway Patency, RR, SpO2: stable & adequate BP & HR: stable & adequate Hydration State: stable & adequate Anesthetic Complications: no major complications apparent and Pt Satisfied with anesthetic care
[2018-04-28] MEDS: ACETAMINOPHEN 500 MG TAB PO PRN ×2 (12:41→23:36)
--- NOTE | 2018-04-28 13:00 | Orthopedic Progress Note ---
Date of Service April 28, 2018 Assessment & Plan (1) Neurogenic claudication due to lumbar spinal stenosis: This time we will continue therapy today advance his bowel regimen anticipate discharge home tomorrow. Present on Admission?: Yes Subjective Patient has marked improvement of his leg pain. Back pain is more significant today. He has not had a bowel movement yet. Physical Exam 2 Vital Signs (Past 24 Hours): Last Vital Signs Temp 36.9 C 04/28/18 11:34 Pulse 71 04/28/18 11:34 Resp 18 04/28/18 11:34 BP 138/78 04/28/18 11:34 Pulse Ox 94 04/28/18 11:34 Physical Exam: On exam patient is in the chair at the bedside. He has good strength testing.
--- NOTE | 2018-04-28 18:46 | Hospitalist Progress Note ---
Date of Service April 28, 2018 Assessment & Plan (1) Status post lumbar spine surgery for decompression of spinal cord: POD # 2 Wound management as per primary team continue bowel regimen (2) Diabetes mellitus type 2, controlled: Hold oral agents for now Continue Lantus / NovoLog per protocol. (3) Essential hypertension: Hold HCTZ for now Continue losartan (4) DVT prophylaxis: Per Ortho (5) Encounter for consultation: [facility] Medicine Team 17/11 via pager @ [phone]. Subjective Patient is seen and examined at bedside Back pain is controlled Denies chest pain, dyspnea, dizziness Eager to get discharged Physical Exam 2 Vital Signs (Past 24 Hours): Last Vital Signs Temp 37.2 C 04/28/18 15:09 Pulse 72 04/28/18 15:09 Resp 16 04/28/18 15:09 BP 147/76 H 04/28/18 15:09 Pulse Ox 96 04/28/18 15:09 Physical Exam: Physical Exam: Vitals signs as noted above General Appearance:Moderately built and nourished, no apparent distress Head: normocephalic, Atraumatic Eyes: normal inspection, EOMI Neck: supple, Trachea midline Respiratory/Chest: Normal breath sounds, CTA Cardiovascular: S1, S2, No murmur Abdomen/GI:Soft, Non tender, Bowel sounds present Back: Surgical site in dressing, +drain Extremities/Musculoskelatal:normal inspection, no edema Neurologic/Psych:AAOX3, grossly no focal neurological deficits Skin: normal color, warm
[2018-04-28] MEDS: ATORVASTATIN 10 MG TAB PO SCH (20:44)
[2018-04-28] MEDS: DOCUSATE SODIUM/SENNA 50/8.6MG TAB PO SCH (20:44)
[2018-04-29] MEDS: POLYETHYLENE (MIRALAX) 17 GM PACK PO SCH (05:56)
--- NOTE | 2018-04-29 08:04 | Orthopedic Progress Note ---
Date of Service April 29, 2018 Assessment & Plan (1) Status post lumbar spine surgery for decompression of spinal cord: Patient ready for home discharge. Instructions given. follow up in 2 weeks. Subjective Patient has marked improvement of his leg pain. Back pain is more significant today. He has not had a bowel movement yet. Ready for home discharge. Physical Exam 2 Vital Signs (Past 24 Hours): Last Vital Signs Temp 36.9 C 04/29/18 07:22 Pulse 67 04/29/18 07:22 Resp 19 04/29/18 07:22 BP 137/83 04/29/18 07:22 Pulse Ox 96 04/29/18 07:22 Constitutional: WD/WN, vitals as above Cardiovascular: Extremities: + calf tenderness (none) Gastrointestinal (Abdomen): normal bowel sounds, soft, nontender, no hepatosplenomegaly Percussion/Palpation: abdomen soft
[2018-04-29] MEDS: INSULIN ASPART 100 UNITS/ML 3 ML PEN SC SCH (08:32)
[2018-04-29] MEDS: ACETAMINOPHEN 500 MG TAB PO PRN (08:32)
[2018-04-29] MEDS: INSULIN GLARGINE SOLOSTAR 100 UNITS/ML 3 ML PEN SC SCH (08:32)
[2018-04-29] MEDS: LOSARTAN POTASSIUM 50 MG TAB PO SCH (08:33)
--- NOTE | 2018-05-25 12:43 | Discharge Summary ---
Date of Service May 25, 2018 Admission HPI Per Admitting Provider This is a 73-year-old male who presents with chronic persistent back and leg pain is failed extensive course of nonoperative care and is here for surgical intervention. Principal Diagnosis Lumbar spinal stenosis with neurogenic claudication Discharge Data Allergies Allergy/AdvReac Type Severity Reaction Status Date / Time No Known Allergies Allergy Verified 03/30/18 09:50 Consultations 04/26/18 13:08 Consult Case Management - Discharge Planning Routine Consult Hospitalist Routine Procedures Performed Operation Date: 04/26/18 09:05 Actual Procedures p L4-L5 Decompression and Fusion(Not Applicable) - Rehan Mccray DO Ordered Studies 04/26/18 09:05 FL fluoroscopy >1hr Routine FL lumbar spine 2-3V Routine Hospital Course (1) Neurogenic claudication due to lumbar spinal stenosis: Patient underwent lumbar decompression fusion tolerated as well as taken to the orthopedic floor postoperative. Postoperatively he progressed an appropriate rate. SABINE drain decreasing appropriately. Subsequently discharged home. Discharge orders and instructions can be found in the chart for further review. Total Time Total Time Spent Total Time Spent (In Minutes): Not applicable Discharge Plan Discharge Items Patient Disposition: Home - Self-Care Reason For Visit: Spinal Stenosis Discharge Diagnosis: lumbar stenosis Discharge Goals: Improve function Activity: Per 'Additional Instructions' section Non-emergency contact: Primary Care Provider Call non-emergency contact if: you have any medication questions Follow-up/Referrals: Gato Navas M.D. [Primary Care Provider] - Diet: Regular Addtl Provider Instructions: ACTIVITY RECOMMENDATIONS: SELF CARE INSTRUCTIONS AFTER THORACIC/LUMBAR FUSIONS 1. You may walk to your tolerance. It is good exercise for your legs and back. Expect some back and intermittent leg aches and pains. 2. You may perform "counter-top" level activities (make a sandwich, danielle with a project, etc.). 3. No bending or lifting of more than 10 pounds or back twisting of any nature (roll like a log when turning in bed). 4. You may ride in a car for 20-30 minutes at a time. No driving until after your first visit with your doctor. 5. Frequent changes of position and restricting sitting to 30 minutes at a time will help limit the amount of back spasms and stiffness you may experience. 6. You may discontinue the use of ambulatory aids (cane, crutches, etc.) once your strength and confidence allow. 7. You may welt trimming machine operator the shower and let water strike your incision when you arrive home at least once daily. Do not take a tub bath, sit in a hot tub or go into a swimming pool until after your first recheck in the office. SPECIAL CARE INSTRUCTIONS: VERY IMPORTANT TO READ AND REVIEW A. Your surgical incision has been closed with a cosmetic suture under the skin that will dissolve in about 6 weeks. In 14 days, you can use a pair of clean scissors and cut the suture that is left outside of the skin at the ends of your incision. 1. The small skin tapes can be removed 7 days after surgery if they have not fallen off by that point. 2. You may keep the wound open to air as much as possible to promote healing after post-op day number 5 unless told otherwise by your doctor. 3. If you think the wound looks like it is becoming infected (redness or worsening drainage) and/or you are experiencing fever, chill or worsening back pain and muscle spasms, contact the office so that we may evaluate you as soon as possible. B. Complications are uncommon, but please contact us if you have any signs or symptoms of: 1. wound infection (fever higher than 102.5 degrees F, redness, separation of wound, drainage, or increasing pain from the incision) 2. blood clots in legs (pain, swelling, redness and warmth in legs) 3. urinary tract infection (fever higher than 102.5 degrees F, burning upon urination or increased frequency of urination) 4. nerve problems (inability to walk on your toes or heels, numbness, loss of bowel or bladder control) 5. any other symptoms that concern you C. Please call the office at if you have any concerns or questions about your operation or recovery. D. No smoking! Smoking drastically decreases the chance of a solid fusion. E. Do not take any anti-inflammatory medications (Indocin, Advil, Motrin, Aspirin, Naprosyn, etc.) as these may inhibit the chance of a solid fusion. Tylenol is okay to take for pain. MANAGING PAIN AFTER SPINAL SURGERY 1. Narcotic medication is intended for short-term use and will be provided for surgical pain. Surgical pain usually lasts for a period of 4-6 weeks. Narcotic medication includes Percocet, Vicodin, Darvocet, Tylenol #3 or Lortab. 2. Longer-term pain is more appropriately treated with non-narcotic medication such as Tylenol ES. 3. Muscle spasm is not appropriately treated with narcotics. Muscle relaxers such as Soma, Flexeril or Skelaxin can be used along with Tylenol ES. 4. Remember that we all live with some "aches and pains". This is not unusual or uncommon after an injury or as we get older. a. Back pain is expected and may include muscle spasms for 4 to 6 weeks after surgery. The pain should gradually improve. If the pain worsens for no apparent reason, please contact the office. b. Intermittent leg pain may also be experienced and should not be concerned about unless it worsens for no apparent reason. If so, please contact the office. 5. We will provide appropriate medication within the normal guidelines of their prescribed use. We will also be very cautious and aware of potential abuse and extended duration of patients' medication needs. a. Pain medications are for your comfort and to assist with sleep and rest so that the tissue can heal. They are not provided in order to return to normal activity and should not be used through the day. To do so or worsening pain at night can result from ongoing tissue damage and development of tolerance to the prescribed medicine. 6. Please allow 2-3 days to process refills. Prescriptions will not be mailed but must be picked up at the office. FOLLOW UP VISIT: Keep your scheduled follow-up appointment. Any questions, please call the office at . Prescriptions: New tramadol 50 mg Tablet 50 mg PO Q4H PRN (Reason: Pain, Moderate) Qty: 30 RF: 0 oxycodone 5 mg Tablet 5 mg PO Q4H PRN (Reason: Pain, Severe) Qty: 30 RF: 0 Continue acetaminophen [Tylenol] 325 mg Tablet 325 mg PO Q6H PRN (Reason: Pain) RF: 0 losartan-hydrochlorothiazide [Hyzaar] 100-25 mg Tablet 1 tab PO Q OTHER DAY RF: 0 metformin 1,000 mg Tablet 1,000 mg PO BID RF: 0 glipizide 5 mg Tablet 5 mg PO QAM RF: 0 empagliflozin-linagliptin [Glyxambi] 10-5 mg Tablet 1 tab PO QAM RF: 0 atorvastatin [Lipitor] 10 mg Tablet 10 mg PO PM RF: 0 Visit Report Forms: My [facility] [employer] [facility] Stand-Alone Forms: My [facility] Discharge Orders: Discharge Order (Routine); Ordered 04/28/18 Ordered By: Rehan Mccray Admission Data Admit Date/Time: 04/26/18 11:45 Attending Provider: Rehan Mccray Admit Provider: Rehan Mccray Primary Care Provider: Gato Navas Other Providers: José Antonio Alvarez Service: Surgical Services Other Interventions: Discharge Summary Assessment (RN) Last Done: 04/29/18 09:12 Pending Studies at Discharge: No DC Date/Time DO NOT enter until pt leaves facility: 04/29/18 10:06
== END 2018-04-29 10:06 | disposition home or self-care (01) | DRG 455 ==
LOC: ASU 06:50 → 3W 11:45